=== PATIENT | female | born 1960 | race Two or more races ===

== ENCOUNTER 2017-07-20 07:39 | Outpatient (CLI) | payer OTHER | END 2017-07-20 07:43 | disposition home or self-care (01) | LOC: SONOGRAMA 07:39 | DX: D11.0 Benign neoplasm of parotid gland (principal) ==

== ENCOUNTER 2018-01-11 09:06 | Outpatient (CLI) | payer OTHER | END 2018-01-11 09:12 | disposition home or self-care (01) | LOC: SONOGRAMA 09:06 | DX: E04.1 Nontoxic single thyroid nodule (principal) ==

== ENCOUNTER 2018-09-05 14:35 | Outpatient (CLI) | payer OTHER | END 2018-09-05 14:51 | disposition home or self-care (01) | LOC: RAD 501 14:35 | DX: M25.561 Pain in right knee (principal) ==